=== PATIENT | male | born 1990 ===

== ENCOUNTER 2024-12-09 18:34 | Inpatient (IN) | payer OTHER ==
[2024-12-09 19:00] VITALS: BMI 21.6
[2024-12-09] MEDS ORDERED: POLYETHYLENE GLYCOL (HEALTHYLAX) 3350 17 GM PACKET PO PRN (19:24)
[2024-12-09] MEDS ORDERED: hydrOXYzine PAMOATE 25 MG CAPSULE (FP) PO PRN (19:24)
[2024-12-09] MEDS ORDERED: guaiFENesin 600 MG TABLET.ER (FP) PO PRN (19:24)
[2024-12-09] MEDS ORDERED: MAG HYDROX/AL HYDROX/SIMETH 30 ML UNIT-DOSE CUP PO PRN (19:24)
[2024-12-09] MEDS ORDERED: ONDANSETRON *ODT* 4 MG TABLET SL PRN (19:24)
[2024-12-09] MEDS ORDERED: diazePAM 5 MG TABLET PO PRN (19:24)
[2024-12-09] MEDS ORDERED: NICOTINE POLACRILEX 2 MG GUM BUC PRN (19:24)
[2024-12-09] MEDS ORDERED: LOPERAMIDE HCL 2 MG CAPSULE PO PRN (19:24)
[2024-12-09] MEDS ORDERED: NALOXONE (NARCAN) HCL 4 MG/0.1 ML SPRAY NS PRN (19:24)
[2024-12-09] MEDS ORDERED: BENZONATATE 200 MG CAPSULE PO PRN (19:24)
[2024-12-09] MEDS ORDERED: DICYCLOMINE HCL 10 MG CAPSULE PO PRN (19:24)
[2024-12-09] MEDS ORDERED: IBUPROFEN 400 MG TABLET (FP) PO PRN (19:24)
[2024-12-09] MEDS ORDERED: METHOCARBAMOL 500 MG TABLET PO PRN (19:24)
[2024-12-09] MEDS ORDERED: MAGNESIUM HYDROX 2400MG/30ML ORAL SUSPENSION 30 ML CUP PO PRN (19:24)
[2024-12-09] MEDS ORDERED: BISMUTH SUBSALICYLATE 524 MG/30 ML PO PRN (19:24)
[2024-12-09] MEDS ORDERED: ACETAMINOPHEN 325 MG TABLET (FP) PO PRN (19:24)
[2024-12-09] MEDS ORDERED: BENZOCAINE/MENTHOL (CHLORASEPTIC ) LOZENGE MM PRN (19:24)
[2024-12-09] MEDS ORDERED: IBUPROFEN 600 MG TABLET (FP) PO PRN (19:24)
[2024-12-09] MEDS: diazePAM 5 MG TABLET PO SCH (22:42)
[2024-12-09] MEDS: THIAMINE 100 MG TABLET PO SCH (22:43)
[2024-12-09] MEDS: MELATONIN 5 MG TABLETS PO SCH (22:43)
[2024-12-10] MEDS: PRENATAL VITAMINS W/ FOLIC ACID TABLET (FP) PO SCH (10:29)
[2024-12-10] MEDS: NICOTINE 14 MG/24 HOURS TOPICAL PATCH TD SCH (10:30)
[2024-12-10 10:39] LABS: HEMATOCRIT 44.4 % (40.1-51.0); HEMOGLOBIN 13.8 g/dL (13.7-17.5); MCHC 31.1 g/dl (32.3-36.5); MEAN CELL VOLUME 88.6 fl (79.0-92.2); MEAN PLT VOLUME 10.6 fl (9.4-12.4); PLATELET COUNT 223 x10^3/uL (163-337); RDW 12.4 % (12.0-15.6)
[2024-12-10 10:45] LABS: CHLORIDE 106 mmol/L (98-107); POTASSIUM 3.7 mmol/L (3.5-5.1); SODIUM 141 mmol/L (136-145)
[2024-12-10 10:52] LABS: ALBUMIN 3.4 g/dl (3.4-5.0); ANION GAP 5 mmol/L (4-13); CALCIUM 9.7 mg/dL (8.5-10.1); CO2 30 mmol/L (21-32)
[2024-12-10 10:53] LABS: BLOOD UREA NITROGEN 17.3 mg/dL (7-18); GLUCOSE,RANDOM 78 mg/dL (74-106)
[2024-12-10 10:55] LABS: SGOT/AST 21 U/L (15-37); SGPT/ALT 21 U/L (13-61)
[2024-12-10 10:56] LABS: CREATININE 0.9 mg/dL (0.55-1.3)
[2024-12-10 10:57] LABS: BILIRUBIN,TOTAL 0.7 mg/dL (0.2-1); TOT PROT 6.6 g/dl (6.4-8.2)
[2024-12-10 10:58] LABS: ALK PHOS 66 U/L (45-117)
[2024-12-10] MEDS: BICTEGRAV/EMTRICIT/TENOFOV (BIKTARVY) 50-200-25 MG TABLET PO SCH (13:33)
[2024-12-11] MEDS: diazePAM 5 MG TABLET PO SCH (07:00)
[2024-12-12] MEDS: diazePAM 5 MG TABLET PO SCH (06:48)
[2024-12-13] MEDS: diazePAM 5 MG TABLET PO ONE (05:55)
[2024-12-13 08:54] VITALS: BP 116/78; PULSE 76; RESP 18; TEMP 981
[2024-12-13] MEDS: NALTREXONE HCL 50 MG TABLET PO SCH (11:08)
== END 2024-12-13 11:10 | disposition other institution (70) | DRG 775 ==
LOC: EDSEX 18:34 → YASAS 18:34 → Y3N 20:55
PROVIDERS: ADMIT Allergy & Immunology; ATTEND Allergy & Immunology
PROC: HZ2ZZZZ Detoxification Services for Substance Abuse Treatment (ICD-10-PCS; principal; 2024-12-09)
DX: F10.230 Alcohol dependence with withdrawal, uncomplicated (principal); F15.20 Other stimulant dependence, uncomplicated; F12.20 Cannabis dependence, uncomplicated; F17.210 Nicotine dependence, cigarettes, uncomplicated; Z21 Asymptomatic human immunodeficiency virus [HIV] infection status; R76.8 Other specified abnormal immunological findings in serum; Z86.19 Personal history of other infectious and parasitic diseases; Z79.899 Other long term (current) drug therapy
CPT/HCPCS: 36415; 80053; 80305; 80307; 85027; 86593; 86780; 87811; 93005; 93010